=== PATIENT | male | born 1985 | race American Indian/Alaskan Native ===

== ENCOUNTER 2018-07-08 08:10 | Inpatient (IN) | payer MEDICAID, OTHER ==
[2018-07-08 08:17] VITALS: BMI 29.7
--- NOTE | 2018-07-08 09:06 | ED PDOC ---
HPI: Psych/Substance Abuse Time Seen by Provider: 07/08/18 08:42 Chief Complaint (Nursing): Psychiatric Evaluation Chief Complaint (Provider): Psychiatric Evaluation History Per: Patient History/Exam Limitations: no limitations Onset/Duration Of Symptoms: Days (1) Additional Complaint(s): 32 y/o male presents to the ED complaining of suicidal ideations since yesterday. Patient reports being depressed. denies any other symptoms. PMD: none provided Past Medical History Reviewed: Historical Data, Nursing Documentation, Vital Signs Vital Signs: Last Vital Signs Temp 99.9 F H 07/08/18 08:15 Pulse 92 H 07/08/18 08:15 Resp 16 07/08/18 08:15 BP 139/87 07/08/18 08:15 Pulse Ox 96 07/08/18 08:15 Primary Care Provider: FAMILY PROVIDER,NO - Medical History PMH: Anxiety, Bipolar Disorder, Depression, Schizophrenia Denies: Alzheimer's Disease, Asthma, Atrial Fibrillation, Bronchitis, Cardia Arrhythmia, CHF, COPD, Dementia, Diabetes, Emphysema, Hepatitis, HIV, HTN, Migraine, Mitral Valve Prolapse, Multiple Sclerosis, Parkinson's Disease, Peripheral Edema, Pneumonia, Pulmonary Embolism, Chronic Kidney Disease, Seizures, Sexually Transmitted Disease, Sleep Apnea, TIA - Family History Family History: States: Unknown Family Hx - Social History Alcohol: Social Drugs: Other (PCP) - Immunization History Hx Tetanus Toxoid Vaccination: No Hx Influenza Vaccination: No Hx Pneumococcal Vaccination: No - Home Medications Home Medications: Ambulatory Orders Medication Instructions Recorded ARIPiprazole [Abilify] 10 mg PO HS #30 tab 07/23/17 traZODone [Desyrel] 100 mg PO HS PRN #30 tab 07/23/17 Famotidine [Pepcid] 20 mg PO DAILY #30 tab 06/16/18 - Allergies Allergies/Adverse Reactions: Allergies Allergy/AdvReac Type Severity Reaction Status Date / Time No Known Allergies Allergy Verified 06/16/18 09:25 Review of Systems ROS Statement: Except As Marked, All Systems Reviewed And Found Negative Psych: Positive for: Suicidal ideation Physical Exam - Reviewed Nursing Documentation Reviewed: Yes Vital Signs Reviewed: Yes - Physical Exam Appears: Positive for: Well, Non-toxic, No Acute Distress Head Exam: Positive for: ATRAUMATIC, NORMAL INSPECTION, NORMOCEPHALIC Skin: Positive for: Normal Color, Warm, Dry Eye Exam: Positive for: EOMI, Normal appearance, PERRL ENT: Positive for: Normal ENT Inspection Neck: Positive for: Normal, Painless ROM, Supple Cardiovascular/Chest: Positive for: Regular Rate, Rhythm. Negative for: Murmur Respiratory: Positive for: Normal Breath Sounds. Negative for: Wheezing Gastrointestinal/Abdominal: Positive for: Normal Exam, Soft. Negative for: Tenderness Back: Positive for: Normal Inspection. Negative for: L CVA Tenderness, R CVA Tenderness Extremity: Positive for: Normal ROM Neurological/Psych: Positive for: Normal Tone, Oriented (x3), Other (tactile stimulation ). Negative for: Awake (Sleeping) - Laboratory Results Result Diagrams: 07/08/18 10:20 07/08/18 10:20 - ECG Interpretation Of ECG: NSR @ 69, no ST-T changes. O2 Sat by Pulse Oximetry: 96 Pulse Ox Interpretation: Normal - Radiology X-Ray: Interpreted by Mt X-Ray Interpretation: No Acute Disease Medical Decision Making Medical Decision Making: Time:857 Impression: Suicidal Ideation Plan: -Alcohol serum -Glucose, blood, POC MEDICAL CLEARANCE: Pt medically cleared for psychiatric evaluation. Scribe Attestation: Documented by Nicki Morales, acting as a scribe for Lois Cyr Provider Scribe Attestation: All medical record entries made by the Scribe were at my direction and personally dictated by me. I have reviewed the chart and agree that the record accurately reflects my personal performance of the history, physical exam, medical decision making, and the department course for this patient. I have also personally directed, reviewed, and agree with the discharge instructions and disposition. Disposition - Clinical Impression Clinical Impression: Major depressive disorder, recurrent, unspecified, Phencyclidine (PCP) use disorder, mild, abuse - Patient ED Disposition Is Patient to be Admitted: Yes - Disposition Disposition Time: 11:15 Condition: STABLE Forms: [facility] (Latvian) - Pt Status Changed To: Hospital Disposition Of: Inpatient - Admit Certification Admit to Inpatient:: After my assessment, the patient will require hospitalization for at least two midnights. This is because of the severity of symptoms shown, intensity of services needed, and/or the medical risk in this patient being treated as an outpatient. - POA Present On Arrival: None
[2018-07-08 10:29] LABS: BASO # 0.1 K/uL (0.0-0.2); BASO % 0.5 % (0.0-2.0); EOS # 0.2 K/uL (0.0-0.7); EOS % 1.6 % (0.0-4.0); HEMOGLOBIN 13.7 g/dL (12.0-18.0); LYMPH # 1.7 K/uL (1.0-4.3); LYMPH % 17.2 % (20.0-40.0); MEAN CELL VOLUME 87.2 fl (80.0-94.0); MEAN CORPUSCULAR HEMOGLOBIN 29.9 pg (27.0-31.0); MEAN CORPUSCULAR HGB CONC 34.3 g/dL (33.0-37.0); MEAN PLATELET VOLUME 7.7 fl (7.2-11.7); MONO # 0.8 K/uL (0.0-0.8); MONO % 8.2 % (0.0-10.0); NEUT # 7.3 K/uL (1.8-7.0); NEUT % 72.5 % (50.0-75.0); RBC 4.6 Mil/uL (4.40-5.90); RED CELL DISTRIBUTION WIDTH 14.1 % (11.5-14.5); WHITE BLOOD COUNT 10.1 K/uL (4.8-10.8)
[2018-07-08 10:39] LABS: ALB/GLOB RATIO 1.7 (1.0-2.1); ALBUMIN 4.3 g/dL (3.5-5.0); ALT/SGPT 36 U/L (21-72); AST/SGOT 20 U/L (17-59); BLOOD UREA NITROGEN 13 mg/dl (9-20); CALCIUM 9.1 mg/dL (8.4-10.2); GFR NON-AFRICAN AMERICAN > 60
[2018-07-08 10:49] LABS: ACETAMINOPHEN < 10.0 ug/ml (10.0-30.0); SALICYLATE < 1.0 mg/dl
--- NOTE | 2018-07-08 11:49 | CARD ---
APPROVED REPORT Date of service: 07/08/2018 EKG Measurement Heart [id number] <Conclusion> Normal sinus rhythm Normal ECG
--- NOTE | 2018-07-08 11:49 | RAD ---
Date of service: 07/08/2018 HISTORY: Medical clearance COMPARISON: No prior. TECHNIQUE: 1 view obtained. FINDINGS: LUNGS: No active pulmonary disease. PLEURA: No significant pleural effusion identified, no pneumothorax apparent. CARDIOVASCULAR: No aortic atherosclerotic calcification present. Normal cardiac size. No pulmonary vascular congestion. OSSEOUS STRUCTURES: No significant abnormalities. VISUALIZED UPPER ABDOMEN: Normal. OTHER FINDINGS: None. IMPRESSION: No active disease.
[2018-07-08 12:13] LABS: URINE BILIRUBIN NEGATIVE (NEGATIVE); URINE BLOOD NEGATIVE (NEGATIVE); URINE CLARITY SLIGHTY-CLOUDY (Clear); URINE COLOR YELLOW (YELLOW); URINE GLUCOSE (UA) NEG (NEGATIVE); URINE LEUKOCYTE ESTERASE NEG Leu/uL (Negative); URINE PROTEIN 30 mg/dL (NEGATIVE); URINE UROBILINOGEN 0.2-1.0 mg/dL (0.2-1.0)
[2018-07-08 12:23] LABS: BARBITURATES, UR NEGATIVE (NEGATIVE); BENZODIAZEPINES, UR POSITIVE (NEGATIVE); OPIATES, UR NEGATIVE (NEGATIVE); PHENCYCLIDINE, UR POSITIVE (NEGATIVE)
[2018-07-08 14:33] VITALS: RESP 18
[2018-07-08 16:35] VITALS: O2SAT 96
[2018-07-08] MEDS ORDERED: Alum-Mag Hydrox-Simethicone Susp (30 mL) PO PRN (21:49)
[2018-07-08] MEDS ORDERED: DiphenhydrAMINE 50 mg/ml Inj IM PRN (21:49)
[2018-07-08] MEDS ORDERED: Magnesium Hydroxide Susp 30 ml UD PO PRN (21:49)
--- NOTE | 2018-07-08 22:28 | PCM.BM ---
Treatment Plan Problems - Problems identified on initial assessmt Suicidal Ideation Date Initiated: 07/08/18 Time Initiated: :27 Assessment reference: NA Status: Active Hopelessness/Helplessness Date Initiated: 07/08/18 Time Initiated: : Assessment reference: NA Status: Active Medication nonadherence Date Initiated: 07/08/18 Time Initiated: : Assessment reference: NA Status: Active Treatment assets and liabiliti Patient Assests: adapts well, cooperative, resourceful, self-reliant, ADL independent, physically healthy, negotiates basic needs, cognitively intact, other Patient Liabilities: financial problems, poor support system, relationship conflicts, substance abuse, legal issue, other (Homelessness) - Milieu Protocol Maintain good personal hygiene: daily Remind patient to perform daily oral care, daily Assist patient to perform ADL's, every other day Encourage regular showers Conduct patient checks and document Observation sheet: Q15 minutes Maintain personal safety: every shift Educate patient to report safety concerns to staff, every shift Monitor environment for contraband/sharps Medication safety: Monitor for expected outcome, potential side effects: every shift, Assess barriers to learning: every shift, Assess readiness for medication education: every shift
[2018-07-08] MEDS: guaiFENesin 200 mg/10 ml Syrup UD PO PRN (22:41)
--- NOTE | 2018-07-09 12:51 | PCM.PSYCH ---
Initial Psychiatric Evaluation - Initial Psychiatric Evaluation Chief Complaint (in patient's own words): I am depressed History of Present Illness and Precipitating Events: pt is 32 ys old male with previous diagnosis of bipolar disorder and polysubstance use , presented to ER with increased depression and suicidal ideation pt has been non compliant with medications, feeling increasingly depressed in the context of being homeless, lack of social support and financial resources relapsed on PCP and cannabis on the unit pt presenting with depressed mood, anxious and irritable affect passive suicidal ideation, no active plan, denied command hallucinations, denied homicidal ideation Current Medications: Active Medications Generic Name Dose Route Start Last Admin Trade Name Freq PRN Reason Stop Dose Admin Acetaminophen 650 mg 07/08/18 21:49 07/09/18 09:18 Tylenol 325mg Tab PO 650 mg Q4 PRN Administration pain level 4-7 Al Hydrox/Mg Hydrox/Simethicone 30 ml 07/08/18 21:49 Maalox Plus 30 Ml PO Q4 PRN Dyspepsia Diphenhydramine HCl 50 mg 07/08/18 21:49 Benadryl IM Q6 PRN Extrapyramidal S/S Unable PO Diphenhydramine HCl 50 mg 07/08/18 21:49 Benadryl PO Q6 PRN Extrapyramidal Symptoms Gabapentin 100 mg 07/09/18 13:00 Neurontin PO TID MICHAEL Guaifenesin 200 mg 07/08/18 22:27 07/08/18 22:41 Robitussin PO 200 mg Q6 PRN Administration Cough Haloperidol 5 mg 07/08/18 21:49 Haldol PO Q4 PRN Agitation Haloperidol Lactate 5 mg 07/08/18 21:49 Haldol IM Q4 PRN Agitation, Unable to Take PO Ibuprofen 600 mg 07/09/18 11:44 Motrin Tab PO Q6 PRN Pain, moderate (4-7) Lorazepam 2 mg 07/08/18 21:49 Ativan IM Q6 PRN Anxiety/Agitation,Unable PO Lorazepam 2 mg 07/08/18 21:49 Ativan PO Q6H PRN Anxiety/Agitation Magnesium Hydroxide 30 ml 07/08/18 21:49 Milk Of Magnesia PO HS PRN Constipation Quetiapine Fumarate 100 mg 07/09/18 22:00 Seroquel PO HS MICHAEL Past Psychiatric History - Past Psychiatric History Explanation of prior treatment: multiple hospitalizations history of non compliance History of ETOH/Drug Use: pcp and cannabis use Pertinent Medical Hx (Current Medical&Sleep Prob, Allergies): Allergies Allergy/AdvReac Type Severity Reaction Status Date / Time No Known Allergies Allergy Verified 06/16/18 09:25 No Known Home Med 07/08/18 Mental Status Examination - Personal Presentation Personal Presentation: Looks older than stated age Additional comments: unkempt - Affect Affect: Constricted - Motor Activity Motor Activity: Psychomotor Retardation - Reliability in Providing Information Reliability in Providing Information: Fair - Speech Speech: Relevant - Mood Mood: Depressed, Anxious - Formal Thought Process Formal Thought Process: Paranoia, Circumstantial - Obsessions/Compulsions Obsessions: No Compulsions: No - Cognitive Functions Orientation: Person, Place Sensorium: Alert Attention/Concentration: Easily distracted Abstract Thinking: [place] Judgement: Imparied, as evidence by: Poor judgement, Imparied, as evidence by: Lack of insight into illness Memory: Recent intact, as evidence by: Ability to recall events of the day - Risk Risk: Suicidal, Withdrawal, Diminished functioning - Strength & Assets Inventory Strength & Assets Inventory: Life experience - Limitations Additional comments: poor compliance DSM 5 DX - DSM 5 DSM 5 Diagnosis: bipolar I disorder PCP abuse cannabis abuse - Recommended/Plan of Treatment Treatment Recommendations and Plan of Treatment: neurontin 100mg tid seroquel 100mg qhs increase gradually motivational group and supportive therapy internal medicine consult
--- NOTE | 2018-07-09 14:47 | CP.PCM.CON ---
History of Present Illness - History of Present Illness History of Present Illness: 32 yo male with history of polysubstance abuse admitted to psyche unit because of worsening depression and suicidal ideation. Review of Systems - Review of Systems All systems: reviewed and no additional remarkable complaints except (aside from those mentioned above, 12 point system review were negative by me) Past Patient History - Infectious Disease Hx of Infectious Diseases: None - Tetanus Immunizations Tetanus Immunization: Unknown - Past Medical History & Family History Past Medical History?: No - Past Social History Smoking Status: Heavy Smoker > 10 Cigarettes Daily Chewing Tobacco Use: No Cigar Use: No Alcohol: > 2 Drinks/Day Drugs: Cannabis, Cocaine, Opiates, Other (PCP) - CARDIAC Hx Atrial Fibrillation: No Hx Cardia Arrhythmia: No Hx Congestive Heart Failure: No Hx Hypertension: No Hx Mitral Valve Prolapse: No Hx Peripheral Edema: No - PULMONARY Hx Asthma: No Hx Bronchitis: No Hx Chronic Obstructive Pulmonary Disease (COPD): No Hx Emphysema: No Hx Pneumonia: No Hx Pulmonary Embolism: No Hx Sleep Apnea: No - NEUROLOGICAL Hx Alzheimer's Disease: No Hx Dementia: No Hx Migraine: No Hx Multiple Sclerosis: No Hx Parkinson's Disease: No Hx Seizures: No Hx Transient Ischemic Attacks (TIA): No - HEENT Hx HEENT Problems: No - RENAL Hx Chronic Kidney Disease: No - ENDOCRINE/METABOLIC Hx Endocrine Disorders: No - HEMATOLOGICAL/ONCOLOGICAL Hx Human Immunodeficiency Virus (HIV): No - INTEGUMENTARY Hx Cellulitis: No - MUSCULOSKELETAL/RHEUMATOLOGICAL Hx Unsteady Gait: Yes - GASTROINTESTINAL HX Swallowing Problems: No - GENITOURINARY/GYNECOLOGICAL Hx Sexually Transmitted Disorders: No - PSYCHIATRIC Hx Depression: Yes Hx Substance Use: Yes (PCP,Marijuana) - SURGICAL HISTORY Hx Amputation: No Hx Joint Replacement: No - ANESTHESIA Hx Anesthesia: No Hx Anesthesia Reactions: No Hx Malignant Hyperthermia: No Has any member of the family had a problem w/ anesthesia?: No Meds Allergies/Adverse Reactions: Allergies Allergy/AdvReac Type Severity Reaction Status Date / Time No Known Allergies Allergy Verified 06/16/18 09:25 - Medications Medications: Current Medications Acetaminophen (Tylenol 325mg Tab) 650 mg PO Q4 PRN PRN Reason: Pain, Mild (1-3) Al Hydrox/Mg Hydrox/Simethicone (Maalox Plus 30 Ml) 30 ml PO Q4 PRN PRN Reason: Dyspepsia Diphenhydramine HCl (Benadryl) 50 mg IM Q6 PRN PRN Reason: Extrapyramidal S/S Unable PO Diphenhydramine HCl (Benadryl) 50 mg PO Q6 PRN PRN Reason: Extrapyramidal Symptoms Gabapentin (Neurontin) 100 mg PO TID MICHAEL Last Admin: 07/09/18 13:37 Dose: 100 mg Guaifenesin (Robitussin) 200 mg PO Q6 PRN PRN Reason: Cough Last Admin: 07/08/18 22:41 Dose: 200 mg Haloperidol (Haldol) 5 mg PO Q4 PRN PRN Reason: Agitation Haloperidol Lactate (Haldol) 5 mg IM Q4 PRN PRN Reason: Agitation, Unable to Take PO Ibuprofen (Motrin Tab) 600 mg PO Q6 PRN PRN Reason: Pain, moderate (4-7) Last Admin: 07/09/18 13:37 Dose: 600 mg Lorazepam (Ativan) 2 mg IM Q6 PRN PRN Reason: Anxiety/Agitation,Unable PO Lorazepam (Ativan) 2 mg PO Q6H PRN PRN Reason: Anxiety/Agitation Magnesium Hydroxide (Milk Of Magnesia) 30 ml PO HS PRN PRN Reason: Constipation Quetiapine Fumarate (Seroquel) 100 mg PO HS MICHAEL Physical Exam - Constitutional Appears: No Acute Distress - Head Exam Head Exam: ATRAUMATIC - Eye Exam Eye Exam: absent: Scleral icterus - ENT Exam ENT Exam: Mucous Membranes Moist - Neck Exam Neck exam: Negative for: Meningismus - Respiratory Exam Respiratory Exam: absent: Rales, Rhonchi, Wheezes, Respiratory Distress - Cardiovascular Exam Cardiovascular Exam: REGULAR RHYTHM, +S1, +S2 - GI/Abdominal Exam GI & Abdominal Exam: Soft. absent: Tenderness - Rectal Exam Rectal Exam: Deferred - Extremities Exam Extremities exam: Negative for: pedal edema - Neurological Exam Neurological exam: Alert, Oriented x3 - Psychiatric Exam Psychiatric exam: Normal Affect - Skin Skin Exam: Dry, Intact Results - Vital Signs Recent Vital Signs: Last Vital Signs Temp 97.6 F 07/08/18 22:30 Pulse 73 07/08/18 22:30 Resp 18 07/08/18 22:30 BP 125/87 07/08/18 22:30 Pulse Ox 96 07/08/18 21:40 - Labs Result Diagrams: 07/08/18 10:20 07/08/18 10:20 Labs: Laboratory Results - last 24 hr 07/09/18 10:45 Triglycerides 100 Cholesterol 133 LDL Cholesterol Direct 76 HDL Cholesterol 44 Thyroxine (T4) 6.32 TSH 3rd Generation 0.78 Assessment & Plan (1) Suicidal ideation Status: Acute Comment: psyche is managing
[2018-07-09] MEDS: guaiFENesin 200 mg/10 ml Syrup UD PO PRN (21:09)
[2018-07-10 09:15] VITALS: BP 103/64; PULSE 70
[2018-07-10 13:15] VITALS: TEMP 98
[2018-07-10] MEDS: guaiFENesin 200 mg/10 ml Syrup UD PO PRN ×2 (13:15→19:51)
--- NOTE | 2018-07-10 14:26 | PCM.PYCHPN ---
Psychiatric Progress Note - Psychiatric Progress Note Patient seen today, length of contact: pt evaluated discussed with team chart reviewed Patient Chief Complaint: I want to leave now Problems Identified/Issues Discussed: pt on evaluation , floridly psychotic , disorganized speech with loose association, tangential thought process , with grandiose delusions , and paranoid delusions towards staff members and people outside ,pt irritable and angry, verbally threatening, has no insight into illness , signed 48 hour notice requesting to be discharged hesitant to take medications , pt at current mental status is danger to self and others will be referred for screening for involuntary admission Medical Problems: multiple hospitalizations history of non compliance DSM 5 Symptoms Update: schizoaffective disorder bipolar 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 Medication Change: Yes (start haldol) Medical Record Reviewed: Yes Mental Status Examination - Cognitive Function Orientation: Person, Place, Situation Attention: Poor Concentration: Poor Association: Loose Fund of Knowledge: Poor Decription of patient's judgement and insights: poor insight and judgment - Mood Mood: Depressed, Anxious - Affect Affect: Broad, Constricted Additional comments: labile irritable - Speech Speech: Loud - Formal Thought Process Formal Thought Process: Delusions, Paranoia, Circumstantial - Suicidal Ideation Suicidal Ideation: No - Homicidal Ideation Homicidal Ideation: No Goal/Treatment Plan - Goal/Treatment Plan Need for Continued Stay: Remain at risks for inpatient hospitalization, Discharge may exacerbated symptoms Progress Toward Problem(s) and Goals/Treatment Plan: pt at current mental status floridly psychotic, threatening requesting to be discharged, pt is danger to self and others will be referred for screening for involuntary admission for continuity of care start haldol 5mg tid and cogentin 1mg tid neurontin 100mg tid seroquel 100mg qhs increase gradually motivational group and supportive therapy
--- NOTE | 2018-07-11 11:29 | PCM.PYCHDC ---
Mental Status Examination - Mental Status Examination Orientation: Person, Place, Situation Memory: Intact Mood: Neutral Affect: Constricted Speech: Appropriate Attention: WNL Concentration: WNL Association: WNL Fund of Knowledge: Poor Formal Thought Process: Circumstantial Description of patient's judgement and insight: poor insight and judgment Psychotic Thoughts and Behaviors: pt on discharge denied psychotic symptoms, non elicited Suicidal Ideation: No Current Homicidal Ideation?: No Discharge Summary - Discharge Note Reason for Hospitalization: pt is 32 ys old male with previous diagnosis of bipolar disorder and polysubstance use , presented to ER with increased depression and suicidal ideation pt has been non compliant with medications, feeling increasingly depressed in the context of being homeless, lack of social support and financial resources relapsed on PCP and cannabis on the unit pt presenting with depressed mood, anxious and irritable affect passive suicidal ideation, no active plan, denied command hallucinations, denied homicidal ideation Consultations:: List each consultation separately and include: 1. Reason for request. 2. Findings. 3. Follow-up Summary of Hospital Course include:: 1. Description of specific treatment plan utilized for patients during their course of treatmen. 2. Summarize the time- course for resolution of acute symptoms and/or regressed behaviors. 3. Describe issues identified and worked on during hospitalization. 4. Describe medication utilized. 5. Describe medical problems identified and treated. 6. Reassessment of suicide risk Summary of Hospital Course: pt on admission presented with depressed mood and affect, disorganized thought process, pt was started on seroquel , and neurontin pt howevere signed 48 hour notice requestin g to be discharged, he was referred to screening for involuntary admission, but pt was found not to meet criteria for involuntary admission pt was discharged against medical advise on discharge pt denied suicidal or homicidal ideation, denied perceptual disturbances - Final Diagnosis (DSM 5) Condition upon Discharge: FAIR DSM 5: bipolar I disorder PCP abuse cannabis abuse Disposition: AGAINST MEDICAL ADVICE Follow-up Treatment Plan: pt at current mental status floridly psychotic, threatening requesting to be discharged, pt is danger to self and others will be referred for screening for involuntary admission for continuity of care start haldol 5mg tid and cogentin 1mg tid neurontin 100mg tid seroquel 100mg qhs increase gradually motivational group and supportive therapy - Antipsychotic Medications Pt discharged on 2 or more routine antipsychotic medications: No
== END 2018-07-11 11:58 | disposition left against medical advice (07) | DRG 753 ==
LOC: H.ER 08:10 → H.ERHOLD 11:13 → H.PSYCH 21:45
PROVIDERS: ADMIT Psychiatry & Neurology Psychiatry; ATTEND Psychiatry & Neurology Psychiatry
PROC: HZ57ZZZ Individual Psychotherapy for Substance Abuse Treatment, Motivational Enhancement (ICD-10-PCS; principal; 2018-07-08)
PROC: GZHZZZZ Group Psychotherapy (ICD-10-PCS; 2018-07-08)
PROC: GZ56ZZZ Individual Psychotherapy, Supportive (ICD-10-PCS; 2018-07-08)
DX: F31.9 Bipolar disorder, unspecified (principal); R45.851 Suicidal ideations; Z91.14 Patient's other noncompliance with medication regimen; F16.10 Hallucinogen abuse, uncomplicated; F12.10 Cannabis abuse, uncomplicated; Z59.0 Homelessness; F17.210 Nicotine dependence, cigarettes, uncomplicated